=== PATIENT | male | born 1960 | race Caucasian/White ===

== ENCOUNTER 2021-11-02 10:24 | Inpatient (IN) ==
[2021-11-02] MEDS ORDERED: Ipratropium/Albuterol Neb 3 ML IH PRN (19:18)
[2021-11-02] MEDS ORDERED: Acetaminophen 325 MG TABLET PO PRN (19:25)
[2021-11-02] MEDS ORDERED: Sennosides 8.6 MG TABLET PO PRN (19:25)
[2021-11-02] MEDS ORDERED: Ondansetron ODT 4 MG TAB.RAPDIS SL PRN (19:27)
[2021-11-02] MEDS ORDERED: *HR* Warfarin 5 MG TABLET PO SCH (19:30)
[2021-11-02] MEDS ORDERED: Warfarin perPT PO PRN (19:58)
[2021-11-02] MEDS ORDERED: *HR* Warfarin 5 MG TABLET PO ONE (20:00)
[2021-11-02] MEDS: Budesonide/Formoterol 160/4.5 1 PUFF INH IH SCH (20:21)
[2021-11-02] MEDS: levETIRAcetam 250 MG TABLET PO SCH (20:32)
[2021-11-02] MEDS: *HR* OxyCODONE/APAP 5/325 TABLET PO PRN (20:33)
[2021-11-02] MEDS: Gabapentin 300 MG CAPSULE PO SCH (20:34)
[2021-11-02] MEDS: ALPRAZolam 1 MG TABLET PO PRN (20:38)
[2021-11-03] MEDS: Gabapentin 300 MG CAPSULE PO SCH ×4 (01:06→20:52)
[2021-11-03] MEDS: *HR* OxyCODONE/APAP 5/325 TABLET PO PRN ×3 (03:26→20:55)
[2021-11-03] MEDS: ALPRAZolam 1 MG TABLET PO PRN ×3 (05:32→23:03)
[2021-11-03 07:22] LABS: Hematocrit 38.7 % (37.5-50.1); Hemoglobin 13.2 g/dL (12.9-16.9); Mean Corpuscular HGB Conc 34.1 g/dL (31.6-35.5); Mean Corpuscular Hemoglobin 31.4 pg (28.0-33.3); Mean Corpuscular Volume 92.1 fL (83.0-100.0); Mean Platelet Volume 9.1 fL (9.4-12.4); Platelet Count 198 K/mcL (140-400); Red Cell Distribution Width 13.2 % (11.5-14.5); White Blood Count 5.9 K/mcL (4.3-11.1)
[2021-11-03 07:59] LABS: Alanine Aminotransferase 14 Units/L (7-52); Albumin 3.8 g/dL (3.5-5.7); Albumin/Globulin Ratio 1.6 (1.1-2.2); Alkaline Phosphatase 54 Units/L (34-104); Aspartate Amino Transferase 16 Units/L (13-39); BUN/Creatinine Ratio 13 (6-26); Bilirubin,Total 0.4 mg/dL (0.3-1.0); Blood Urea Nitrogen 15 mg/dL (6-20); Calcium 8.9 mg/dL (8.6-10.3); Carbon Dioxide 29 mEq/L (23-29); Chloride 105 mEq/L (98-107); Globulin 2.4 g/dL (2.4-3.5); Glucose 87 mg/dL (70-105); Magnesium 1.9 mg/dL (1.6-2.6); Osmolality,Calculated 292 (280-300); Potassium 3.3 mEq/L (3.5-5.1); Sodium 141 mEq/L (136-145); Total Protein 6.2 g/dL (6.4-8.9); eGFR For African Americans > 60 (> 60); eGFR For Non-African Americans > 60 (> 60)
[2021-11-03] MEDS: Cyanocobalamin (B-12) 1,000 MCG TABLET PO SCH (08:18)
[2021-11-03] MEDS: amLODIPine 5 MG TABLET PO SCH (08:18)
[2021-11-03] MEDS: Metoprolol XL (24 HR) Succ 25 MG TAB.ER.24H PO SCH (08:18)
[2021-11-03] MEDS: levETIRAcetam 250 MG TABLET PO SCH ×2 (08:18→20:52)
[2021-11-03 10:47] LABS: INR 1.7; Prothrombin Time 18.9 Seconds (9.4-12.1)
[2021-11-03] MEDS: Budesonide/Formoterol 160/4.5 1 PUFF INH IH SCH ×2 (10:48→18:55)
[2021-11-03] MEDS ORDERED: *HR* Warfarin 7.5 MG TABLET PO ONE (18:00)
[2021-11-03] MEDS ORDERED: *HR* Warfarin 5 MG TABLET PO SCH (19:18)
[2021-11-03] MEDS: Melatonin 3 MG TABLET PO PRN (20:55)
[2021-11-04] MEDS: Gabapentin 300 MG CAPSULE PO SCH ×4 (03:11→20:40)
[2021-11-04] MEDS: *HR* OxyCODONE/APAP 5/325 TABLET PO PRN ×3 (06:33→20:39)
[2021-11-04 06:45] LABS: INR 1.8; Prothrombin Time 20.2 Seconds (9.4-12.1)
[2021-11-04] MEDS: Budesonide/Formoterol 160/4.5 1 PUFF INH IH SCH ×2 (07:56→19:45)
[2021-11-04] MEDS: levETIRAcetam 250 MG TABLET PO SCH ×2 (08:46→20:39)
[2021-11-04] MEDS: Cyanocobalamin (B-12) 1,000 MCG TABLET PO SCH (08:46)
[2021-11-04] MEDS: amLODIPine 5 MG TABLET PO SCH (08:46)
[2021-11-04] MEDS: ALPRAZolam 1 MG TABLET PO PRN ×2 (08:46→17:17)
[2021-11-04] MEDS: Metoprolol XL (24 HR) Succ 25 MG TAB.ER.24H PO SCH (08:46)
[2021-11-04] MEDS ORDERED: Ketorolac 30 MG/ML VIAL IVP ONE (11:15)
[2021-11-04] MEDS ORDERED: *HR* Warfarin 5 MG TABLET PO ONE (18:00)
[2021-11-04] MEDS: Melatonin 3 MG TABLET PO PRN (20:39)
[2021-11-05] MEDS: *HR* OxyCODONE/APAP 5/325 TABLET PO PRN ×5 (00:22→20:54)
[2021-11-05] MEDS: Gabapentin 300 MG CAPSULE PO SCH ×4 (01:15→20:53)
[2021-11-05] MEDS: ALPRAZolam 1 MG TABLET PO PRN ×2 (01:17→16:28)
[2021-11-05] MEDS: amLODIPine 5 MG TABLET PO SCH (07:52)
[2021-11-05] MEDS: levETIRAcetam 250 MG TABLET PO SCH ×2 (07:53→20:53)
[2021-11-05] MEDS: Metoprolol XL (24 HR) Succ 25 MG TAB.ER.24H PO SCH (07:53)
[2021-11-05] MEDS: Cyanocobalamin (B-12) 1,000 MCG TABLET PO SCH (07:53)
[2021-11-05 09:55] LABS: INR 2.1; Prothrombin Time 23.4 Seconds (9.4-12.1)
[2021-11-05] MEDS: Budesonide/Formoterol 160/4.5 1 PUFF INH IH SCH ×2 (11:17→18:43)
[2021-11-05] MEDS ORDERED: *HR* Warfarin 5 MG TABLET PO ONE (18:00)
[2021-11-05] MEDS: Melatonin 3 MG TABLET PO PRN (20:54)
[2021-11-06] MEDS: ALPRAZolam 1 MG TABLET PO PRN ×4 (00:13→23:08)
[2021-11-06] MEDS: Gabapentin 300 MG CAPSULE PO SCH ×4 (01:45→21:10)
[2021-11-06] MEDS: *HR* OxyCODONE/APAP 5/325 TABLET PO PRN ×5 (01:45→21:19)
[2021-11-06] MEDS: levETIRAcetam 250 MG TABLET PO SCH ×2 (07:51→21:10)
[2021-11-06] MEDS: Cyanocobalamin (B-12) 1,000 MCG TABLET PO SCH (07:51)
[2021-11-06] MEDS: amLODIPine 5 MG TABLET PO SCH (07:51)
[2021-11-06] MEDS: Metoprolol XL (24 HR) Succ 25 MG TAB.ER.24H PO SCH (07:52)
[2021-11-06 08:10] LABS: INR 2.5; Prothrombin Time 27.6 Seconds (9.4-12.1)
[2021-11-06] MEDS: Budesonide/Formoterol 160/4.5 1 PUFF INH IH SCH ×2 (10:51→20:31)
[2021-11-06] MEDS ORDERED: *HR* Warfarin 5 MG TABLET PO ONE (18:00)
[2021-11-06] MEDS: Melatonin 3 MG TABLET PO PRN (21:10)
[2021-11-07] MEDS: Gabapentin 300 MG CAPSULE PO SCH ×4 (02:04→21:13)
[2021-11-07 06:00] LABS: Hemoglobin 12.9 g/dL (12.9-16.9); Mean Corpuscular HGB Conc 33.9 g/dL (31.6-35.5); Mean Corpuscular Hemoglobin 31.9 pg (28.0-33.3); Mean Corpuscular Volume 93.8 fL (83.0-100.0); Platelet Count 212 K/mcL (140-400); Red Blood Count 4.05 M/mcL (4.19-5.50); Red Cell Distribution Width 13.4 % (11.5-14.5); White Blood Count 6.3 K/mcL (4.3-11.1)
[2021-11-07 06:04] LABS: INR 2.4; Prothrombin Time 26.6 Seconds (9.4-12.1)
[2021-11-07 06:14] LABS: Alanine Aminotransferase 14 Units/L (7-52); Albumin 3.8 g/dL (3.5-5.7); Albumin/Globulin Ratio 1.7 (1.1-2.2); Alkaline Phosphatase 63 Units/L (34-104); Aspartate Amino Transferase 8 Units/L (13-39); BUN/Creatinine Ratio 12 (6-26); Bilirubin,Total 0.3 mg/dL (0.3-1.0); Blood Urea Nitrogen 15 mg/dL (6-20); Calcium 8.9 mg/dL (8.6-10.3); Carbon Dioxide 30 mEq/L (23-29); Chloride 107 mEq/L (98-107); Globulin 2.3 g/dL (2.4-3.5); Glucose 101 mg/dL (70-105); Magnesium 2.1 mg/dL (1.6-2.6); Osmolality,Calculated 295 (280-300); Potassium 4.1 mEq/L (3.5-5.1); Sodium 142 mEq/L (136-145); Total Protein 6.1 g/dL (6.4-8.9); eGFR For African Americans > 60 (> 60); eGFR For Non-African Americans 60 (> 60)
[2021-11-07] MEDS: *HR* OxyCODONE/APAP 5/325 TABLET PO PRN ×4 (06:54→21:13)
[2021-11-07] MEDS: Budesonide/Formoterol 160/4.5 1 PUFF INH IH SCH ×2 (07:52→19:52)
[2021-11-07] MEDS: levETIRAcetam 250 MG TABLET PO SCH ×2 (08:20→21:13)
[2021-11-07] MEDS: amLODIPine 5 MG TABLET PO SCH (08:20)
[2021-11-07] MEDS: ALPRAZolam 1 MG TABLET PO PRN ×3 (08:20→21:15)
[2021-11-07] MEDS: Cyanocobalamin (B-12) 1,000 MCG TABLET PO SCH (08:20)
[2021-11-07] MEDS: Metoprolol XL (24 HR) Succ 25 MG TAB.ER.24H PO SCH (08:21)
[2021-11-07] MEDS: Furosemide 20 MG TABLET PO PRN (11:01)
[2021-11-07] MEDS ORDERED: *HR* Warfarin 5 MG TABLET PO ONE (18:00)
[2021-11-07] MEDS: Melatonin 3 MG TABLET PO PRN (21:15)
[2021-11-08] MEDS: Gabapentin 300 MG CAPSULE PO SCH ×4 (03:53→20:24)
[2021-11-08 05:06] LABS: INR 2.5
[2021-11-08] MEDS: ALPRAZolam 1 MG TABLET PO PRN ×3 (06:03→20:24)
[2021-11-08] MEDS: *HR* OxyCODONE/APAP 5/325 TABLET PO PRN ×4 (06:03→20:25)
[2021-11-08] MEDS: Metoprolol XL (24 HR) Succ 25 MG TAB.ER.24H PO SCH (08:15)
[2021-11-08] MEDS: levETIRAcetam 250 MG TABLET PO SCH ×2 (08:15→20:24)
[2021-11-08] MEDS: Cyanocobalamin (B-12) 1,000 MCG TABLET PO SCH (08:16)
[2021-11-08] MEDS: amLODIPine 5 MG TABLET PO SCH (08:16)
[2021-11-08] MEDS: Budesonide/Formoterol 160/4.5 1 PUFF INH IH SCH ×2 (08:55→21:37)
[2021-11-08] MEDS ORDERED: *HR* Warfarin 5 MG TABLET PO ONE (18:00)
[2021-11-08] MEDS: Melatonin 3 MG TABLET PO PRN (20:24)
[2021-11-09] MEDS: Gabapentin 300 MG CAPSULE PO SCH ×4 (04:08→20:32)
[2021-11-09] MEDS: ALPRAZolam 1 MG TABLET PO PRN ×3 (04:08→20:33)
[2021-11-09] MEDS: *HR* OxyCODONE/APAP 5/325 TABLET PO PRN ×2 (04:08→08:08)
[2021-11-09 05:05] LABS: INR 2.3; Prothrombin Time 25.4 Seconds (9.4-12.1)
[2021-11-09] MEDS: amLODIPine 5 MG TABLET PO SCH (08:05)
[2021-11-09] MEDS: Metoprolol XL (24 HR) Succ 25 MG TAB.ER.24H PO SCH (08:06)
[2021-11-09] MEDS: levETIRAcetam 250 MG TABLET PO SCH ×2 (08:06→20:33)
[2021-11-09] MEDS: Cyanocobalamin (B-12) 1,000 MCG TABLET PO SCH (08:06)
[2021-11-09] MEDS: Budesonide/Formoterol 160/4.5 1 PUFF INH IH SCH ×2 (10:48→21:07)
[2021-11-09] MEDS: *HR* OxyCODONE/APAP 7.5/325 TABLET PO PRN ×3 (12:16→22:09)
[2021-11-09] MEDS: Furosemide 20 MG TABLET PO PRN (14:35)
[2021-11-09] MEDS ORDERED: *HR* Warfarin 5 MG TABLET PO ONE (18:00)
[2021-11-09] MEDS: Melatonin 3 MG TABLET PO PRN (20:33)
[2021-11-10] MEDS: Gabapentin 300 MG CAPSULE PO SCH ×4 (01:35→20:00)
[2021-11-10] MEDS: Furosemide 20 MG TABLET PO PRN ×2 (01:35→20:00)
[2021-11-10 04:58] LABS: INR 1.9
[2021-11-10] MEDS: Budesonide/Formoterol 160/4.5 1 PUFF INH IH SCH ×2 (07:24→21:11)
[2021-11-10] MEDS: Metoprolol XL (24 HR) Succ 25 MG TAB.ER.24H PO SCH (09:50)
[2021-11-10] MEDS: Cyanocobalamin (B-12) 1,000 MCG TABLET PO SCH (09:50)
[2021-11-10] MEDS: amLODIPine 5 MG TABLET PO SCH (09:51)
[2021-11-10] MEDS: levETIRAcetam 250 MG TABLET PO SCH ×2 (09:51→20:01)
[2021-11-10] MEDS: *HR* OxyCODONE/APAP 7.5/325 TABLET PO PRN ×3 (09:53→20:00)
[2021-11-10] MEDS: ALPRAZolam 1 MG TABLET PO PRN ×2 (15:37→20:00)
[2021-11-10] MEDS ORDERED: Ibuprofen 400 MG TABLET PO PRN (16:49)
[2021-11-10] MEDS ORDERED: *HR* Warfarin 7.5 MG TABLET PO ONE (18:00)
[2021-11-10 19:29] LABS: Bilirubin,Urine Negative (Negative); Blood,Urine Large (Negative); Clarity,Urine Clear (Clear); Color,Urine Yellow (Yellow); Glucose,Urine (UA) Normal (Normal); Ketones,Urine Negative (Negative); Leukocyte Esterase,Urine Negative (Negative); Nitrite,Urine Negative (Negative); Protein,Urine Negative (Neg-Trace); Specific Gravity,Urine 1.015 (1.010-1.025); Urobilinogen,Urine Normal (Normal)
[2021-11-10 19:30] LABS: WBC,Urine 0-3 per hpf (0-3)
[2021-11-10 19:52] LABS: Amphetamine Screen,Urine Negative ng/mL (Cutoff=1000); Barbiturate Screen,Urine Negative ng/mL (Cutoff=200); Benzodiazepines Screen,Urine Positive ng/mL (Cutoff=200); Cannabinoid Screen,Urine Positive ng/mL (Cutoff = 50); Cocaine Screen,Urine Negative ng/mL (Cutoff= 300); Opiate Screen,Urine Negative ng/mL (Cutoff=300); Phencyclidine Screen,Urine Negative ng/mL (Cutoff=25)
[2021-11-10] MEDS: Melatonin 3 MG TABLET PO PRN (20:01)
[2021-11-11] MEDS: *HR* OxyCODONE/APAP 7.5/325 TABLET PO PRN ×3 (02:34→12:09)
[2021-11-11] MEDS: Gabapentin 300 MG CAPSULE PO SCH ×3 (02:34→14:48)
[2021-11-11] MEDS: ALPRAZolam 1 MG TABLET PO PRN (02:34)
[2021-11-11 05:20] LABS: Hematocrit 36.6 % (37.5-50.1); Hemoglobin 12.3 g/dL (12.9-16.9); Mean Corpuscular HGB Conc 33.6 g/dL (31.6-35.5); Mean Corpuscular Hemoglobin 31.6 pg (28.0-33.3); Mean Corpuscular Volume 94.1 fL (83.0-100.0); Mean Platelet Volume 8.6 fL (9.4-12.4); Platelet Count 172 K/mcL (140-400); Red Blood Count 3.89 M/mcL (4.19-5.50); Red Cell Distribution Width 13.1 % (11.5-14.5); White Blood Count 4.9 K/mcL (4.3-11.1)
[2021-11-11 05:26] LABS: INR 1.9
[2021-11-11 06:41] VITALS: BP 111/71; PULSE 50; TEMP 97.1
[2021-11-11 07:23] LABS: BUN/Creatinine Ratio 11 (6-26); Blood Urea Nitrogen 15 mg/dL (6-20); Carbon Dioxide 36 mEq/L (23-29); Chloride 102 mEq/L (98-107); Glucose 87 mg/dL (70-105); Magnesium 2.1 mg/dL (1.6-2.6); Osmolality,Calculated 294 (280-300); Potassium 3.8 mEq/L (3.5-5.1); Sodium 142 mEq/L (136-145); eGFR For African Americans > 60 (> 60); eGFR For Non-African Americans 55 (> 60)
[2021-11-11] MEDS: Metoprolol XL (24 HR) Succ 25 MG TAB.ER.24H PO SCH (08:56)
[2021-11-11] MEDS: levETIRAcetam 250 MG TABLET PO SCH (08:56)
[2021-11-11] MEDS: amLODIPine 5 MG TABLET PO SCH (08:57)
[2021-11-11] MEDS: Cyanocobalamin (B-12) 1,000 MCG TABLET PO SCH (08:57)
[2021-11-11] MEDS: Budesonide/Formoterol 160/4.5 1 PUFF INH IH SCH (10:05)
[2021-11-11 10:16] VITALS: RESP 19; O2SAT 90
[2021-11-11] MEDS ORDERED: *HR* Warfarin 5 MG TABLET PO ONE (18:00)
== END 2021-11-11 15:30 | DRG 537 ==
LOC: INPGRE 14:37
PROVIDERS: ADMIT Family Medicine; ATTEND Family Medicine